=== PATIENT | male | born 1935 | race Caucasian/White ===

== ENCOUNTER 2018-08-08 13:26 | Outpatient (CLI) | payer MEDICARE ==
[~2018-08-08 13:26] MED LIST: Gadobenate Dimeglumine 529 MG/1 ML (20ML VIAL) ONE
--- NOTE | 2018-08-08 16:55 | MRI ---
MR ANGIOGRAM NECK WITH AND WITHOUT CONTRAST: HISTORY: Transient ischemic attack. Evaluate cervical carotids. COMPARISON: None. TECHNIQUE: Axial 3D [id number] imaging and coronal postcontrast imaging of the great vessels of the neck is performed. Maximum intensity projection images are submitted for interpretation. FINDINGS: The axial 3D [id number] images are essentially suboptimal and nondiagnostic. The coronal post contrast images are somewhat limited but do allow for reasonable visualization of th e great vessels of the neck. The visualized aortic arch is unremarkable. There appears to a common origin of the right carotid an d left carotid arteries. The right common carotid artery is mildly tortuous. There does not appear to be any significant sten osis of the right common carotid artery, the carotid bifurcation, or the internal carotid artery. The left common carotid artery appears to have appropriate luminal diameter. There does appear to be significant stenosis with possible dissection involving the left carotid bifurcation and proximal in ternal carotid artery. Better interrogation with conventional angiography or CT angiogram of the nec k is recommended. This dissection may extend into the distal left common carotid artery. The mid to distal left internal carotid artery is unremarkable. There is limited evaluation of the origin of the right vertebral artery. The right vertebral artery is patent throughout the remainder of the course of the neck. The left vertebral artery is dominant. There appears to be mild tortuosity of the proximal left vertebral artery. No significant stenosis . IMPRESSION: Possible dissection involving the distal left common carotid artery, carotid bifurcation, and proxima l internal carotid artery. Better interrogation with a CT angiogram of the neck or conventional shoaib ography is recommended. The results of the study were discussed with Dr. Adrian on 08/08/2018 at 4:32 p.m. ANDREW COLLINS POS: [facility]
== END 2018-08-08 13:27 | disposition home or self-care (01) ==
LOC: SCSMRI 13:26
PROVIDERS: ATTEND Internal Medicine Cardiovascular Disease
DX: G45.9 Transient cerebral ischemic attack, unspecified (principal)
CPT/HCPCS: 70549; 82565; A9579

== ENCOUNTER 2018-08-30 12:09 | Outpatient (CLI) | payer MEDICARE ==
[~2018-08-30 12:09] MED LIST changes: -Gadobenate Dimeglumine 529 MG/1 ML (20ML VIAL) ONE; +ISOVUE-370 76%-LOCM 1 ML ONE
--- NOTE | 2018-08-30 17:47 | CT ---
CT ANGIOGRAM OF THE NECK: 08/30/18 HISTORY: Carotid artery occlusion. Carotid stenosis. Possible dissection of the left carotid artery noted on M R angiogram of the neck. COMPARISON: None. CORRELATION: MR angiogram of the neck 08/08/18. TECHNIQUE: CT angiogram of the neck is performed in the axial plane. Three dimensional reformatted images are julian bmitted for interpretation. FINDINGS: The visualized brain parenchymal is unremarkable. Bilateral ocular lens implants are noted. Both globes are intact. Retrobulbar fat is preserved. Slightly asymmetric prominent left ophthalmic vein, nonspecific. Adequate aeration of the sinuses wit h exception of the left maxillary sinus where there is mucosal disease. Adequate mastoid air cell aer ation. Aerodigestive tract is patent. No mucosal abnormality. Midline fatty raphae of the tongue is p reserved. Epiglottis has a normal caliber. Pre-epiglottic fat is preserved. Symmetric attenuation of the sternocleidomastoid muscles. Symmetric attenuation of the parotid and julian bmandibular glands. Unremarkable thyroid gland. No evidence of lymphadenopathy by size criteria. Cervical spine vertebral body height is maintained. No fracture. No high grade central canal stenosis or high grade foraminal narrowing. Upper mediastinum and lung apices are unremarkable. CT ANGIOGRAM: The aortic arch has an overall normal appearance. There is a bovine origin of the carotid arteries. RIGHT CAROTID: The common carotid artery, carotid bifurcation, and internal carotid artery do not have any significa nt stenosis based upon NASCET criteria. LEFT CAROTID: The left common carotid has appropriate enhancement and luminal diameter. In the left carotid bifurca tion, there is a short segment severe stenosis with a small focal ulceration. Area of focal ulceratio n and irregularity corresponds with a possible dissection noted on previous MRA. Note, there is a calcification that is somewhat medially displaced and an associated small carotid di ssection, likely chronic cannot be excluded. The mid to distal left internal carotid artery is unrema rkable. Both subclavian arteries are unremarkable. The cervical vertebral arteries are patent throughout thei r course of the neck. The left vertebral artery is dominant. IMPRESSION: 1. Short segment severe stenosis with ulceration and possible chronic dissection involving the l eft carotid bifurcation and proximal left internal carotid artery. There is severe stenosis of the l eft carotid bifurcation and proximal left internal carotid artery based upon NASCET criteria. 2. Slightly asymmetric prominent left ophthalmic vein. 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 POS: [facility]
== END 2018-08-30 12:10 | disposition home or self-care (01) ==
LOC: BICCT 12:09
PROVIDERS: ATTEND Thoracic Surgery (Cardiothoracic Vascular Surgery)
DX: I65.22 Occlusion and stenosis of left carotid artery (principal); I77.2 Rupture of artery
CPT/HCPCS: 70498; 82565

== ENCOUNTER 2018-09-09 05:42 | Inpatient (IN) | payer MEDICARE ==
[2018-09-09] MEDS ORDERED: Bupivacaine/Epinephrine 0.25% 30 ML VIAL ONE (07:00)
[2018-09-09] MEDS ORDERED: Heparin 5,000 UNITS/ML VIAL ONE (07:00)
[2018-09-09] MEDS ORDERED: Midazolam HCl 2 mg/2 ml Vial ONE (07:07)
[2018-09-09] MEDS ORDERED: Bupivacaine HCl 0.5%/Epinephrine 1:200,000/PF 30 ml Vial ONE (08:02)
[2018-09-09] MEDS ORDERED: Protamine Sulfate 50 MG/5 ML VIAL ONE (08:39)
--- NOTE | 2018-09-09 11:04 | OP ---
DATE OF PROCEDURE: 09/09/2018 PREOPERATIVE DIAGNOSIS: Symptomatic left carotid stenosis. POSTOPERATIVE DIAGNOSIS: Symptomatic left carotid stenosis. PROCEDURE: Left carotid endarterectomy. SURGEON: Dr. Melchor Love ANESTHESIA: General endotracheal. ESTIMATED BLOOD LOSS: Less than 100. PROCEDURE IN DETAIL: After consent was obtained, the patient was brought to operating room and placed supine on the operating room table. Appropriate anesthetic monitor was placed and general endotracheal anesthesia induced. The left neck was prepped and draped in usual sterile fashion. Skin incision was made. Dissection through the platysma obtained with electrocautery. Left sternocleidomastoid was mobilized. Facial vein branches were divided between clips and ties. The carotid sheath was entered. Common internal and external carotid arteries were carefully exposed. Vagus and hypoglossal nerves were noted and protected throughout the procedure. This incision was deep as he has a very large neck. After 3 minutes of heparinization, the internal common, and external carotid arteries were clamped. Incision was made on the bulb and extended through the internal carotid artery distal to the stenosis. Inside the carotid was a significant soft plaque with free floating debris. A 10- [place] shunt was placed and antegrade flow reestablished. Endarterectomy was begun on the common carotid artery. This was extended through the bulb on the internal carotid artery. A sharp endpoint was obtained. This was tacked down with running 7-0 Prolene suture. Eversion endarterectomy of the external carotid artery was performed. Medial fibers were debrided. Artery was flushed with heparinized saline. This was a large artery, approximately 6 mm in diameter and therefore it was primarily closed. Shunt was removed prior to completion of closure. After completion of the closure, arteries were backbled and the artery flushed with heparinized saline. Suture line was then tied. Antegrade flow was reestablished up the external carotid artery for 10 seconds followed by the internal carotid artery. Protamine was administered. After adequate hemostasis had been obtained, the wound was copiously irrigated, closed in layers and Dermabond applied to the skin. The patient was awakened and neurologically intact at completion. [facility]PITAL[facility]ie
--- NOTE | 2018-09-09 11:59 | CT ---
CT HEAD NONCONTRAST: Date: 09/09/18 INDICATION: Altered mental status. History of carotid endarterectomy. Aphasia and diminished movement. FINDINGS: There is a focal region of diminished attenuation involving the left frontal lobe with superimposed a reas of small cavitary remote infarction. There is no hemorrhage, mass effect, or midline shift. Vent ricular system is normal in size. IMPRESSION: 1. Area of diminished attenuation left frontal lobe, which likely relates to subacute ischemia, with superimposed multifocal remote appearing cavitary infarctions, primarily left STELLA distribution. 2. There are scattered areas of diminished attenuation indicating superimposed mild ischemic disease . Consider brain MRI, in the absence of contraindications, for a more definitive assessment. POS: [facility]
[2018-09-09 13:46] LABS: Hemoglobin 15.2 g/dL (14.0-18.0); Mean Corpuscular HGB CONC 31.2 g/dL (32.0-36.0); Mean Corpuscular Hemoglobin 27.3 pg (27.0-31.0); Mean Corpuscular Volume 87.5 fL (78.0-98.0); Mean Platelet Volume 8.4 fL (7.4-10.4); Platelet Count 201 thou/uL (130-400); RBC Distribution Width 14.9 % (11.5-14.5); Red Blood Cell (RBC) Count 5.54 mill/uL (4.70-6.10); White Blood Cell (WBC) Count 6.3 thou/uL (4.8-10.8)
[2018-09-09 15:04] LABS: Anion Gap 11 mmol/L (10-20); BUN (Urea Nitrogen) 18 mg/dL (8.4-25.7); Calc. Creatinine Clearance 75 mL/min (70-130); Calcium 9.3 mg/dL (7.8-10.44); Carbon Dioxide 30 mmol/L (23-31); Chloride 97 mmol/L (98-107); Estimated GFR-MDRD 60; Glucose 114 mg/dL (83-110); Potassium 3.9 mmol/L (3.5-5.1); Sodium 134 mmol/L (136-145)
[2018-09-09] MEDS ORDERED: Iopamidol 370 76% 100 ML VIAL ONE (15:05)
--- NOTE | 2018-09-09 15:21 | CT ---
CT ARTERIOGRAM NECK WITH IV CONTRAST AND 3D MIP IMAGING CT ARTERIOGRAM HEAD WITH IV CONTRAST AND 3D MIP IMAGING CT BRAIN WITH IV CONTRAST: Date: 09/09/18 HISTORY: CVA. Recent neck surgery. FINDINGS: Atelectasis at each lung apex. Good flow into each carotid and vertebral system. Bovine origin of the great vessels at the aortic arch. On the right, there is calcification and plaque at the internal carotid artery with short segment foc us of approximately 50% stenosis within the mid to distal right ICA. Good flow into the distal ICA. On the left, there are postoperative changes at the carotid bifurcation. Internal carotid artery is w idely patent. Pockets of gas and surgical clips are apparent. Intracranially, no abnormal areas of contrast enhancement are evident. [place] of [place] is intact. Ca lcification in the carotid siphons. Persistent origin of the left posterior cerebral artery. Good contrast flow into each cerebral arterial system, including the left anterior cerebral artery. IMPRESSION: 1. Atherosclerosis. 2. Postoperative changes left cervical carotid arteries. No evidence of complication. 3. Subacute/acute left frontal infarct. 4. Atherosclerosis with mild stenosis right cervical ICA. Findings called to Dr. Love at 1300 hours. CODE CR. POS: [facility]
[2018-09-09] MEDS ORDERED: hydrALAZINE 20 MG/ML VIAL SLOW IVP PRN ×2 (15:25→15:26)
[2018-09-09] MEDS ORDERED: Fentanyl 100 MCG/2 ML VIAL SLOW IVP PRN (15:28)
[2018-09-09] MEDS ORDERED: traMADol HCl 50 MG TAB PO PRN (15:29)
[2018-09-09] MEDS ORDERED: Ondansetron HCl/PF 4 MG/2 ML Vial IVP PRN (15:30)
[2018-09-09] MEDS ORDERED: Nitroglycerin 50 MG/250 ML BOT 250 ML IVPB SCH (15:30)
[2018-09-09 16:45] LABS: ALT (SGPT) 27 U/L (8-55); AST (SGOT) 25 U/L (5-34); Albumin 3.9 g/dL (3.4-4.8); Alkaline Phosphatase 61 U/L (40-150); Anion Gap 13 mmol/L (10-20); BUN (Urea Nitrogen) 18 mg/dL (8.4-25.7); Bilirubin, Total 0.9 mg/dL (0.2-1.2); Calc. Creatinine Clearance 83 mL/min (70-130); Calcium 8.2 mg/dL (7.8-10.44); Carbon Dioxide 22 mmol/L (23-31); Chloride 103 mmol/L (98-107); Estimated GFR-MDRD 66; Globulin 2.5 g/dL (2.4-3.5); Glucose 155 mg/dL (83-110); Potassium 3.9 mmol/L (3.5-5.1); Protein, Total 6.4 g/dL (5.8-8.1); Sodium 134 mmol/L (136-145)
[2018-09-09 16:48] LABS: PTT 30.6 SEC (22.9-36.1); Prothrombin Time 13.2 SEC (12.0-14.7)
[2018-09-09 16:49] LABS: CKMB 2.2 ng/mL (0-6.6); Troponin I Less than 0.010 ng/mL (< 0.028)
[2018-09-09 17:03] LABS: Anisocytosis SLIGHT = 6-15 cells (100X) (0-5/hpf); Band 5 % (5-11); Hemoglobin 14.3 g/dL (14.0-18.0); Lymphocytes 4 % (21-51); MDiff Complete? YES; Mean Corpuscular HGB CONC 32.6 g/dL (32.0-36.0); Mean Corpuscular Hemoglobin 28.6 pg (27.0-31.0); Mean Corpuscular Volume 87.9 fL (78.0-98.0); Mean Platelet Volume 8.8 fL (7.4-10.4); Monocytes 5 % (0-10); Neutrophil 86 % (42-75); PLT Morphology Comment Appears Adequate; Platelet Count 178 thou/uL (130-400); RBC Distribution Width 14.9 % (11.5-14.5); Red Blood Cell (RBC) Count 5.01 mill/uL (4.70-6.10)
[2018-09-09] MEDS: Clindamycin/D5W 900 MG in Premix Bag 1 BAG IVPB SCH (17:10)
[2018-09-09] MEDS ORDERED: Non-Formulary Item 1 EACH (Telmisartan/Hydrochlorothiazid [Telmisartan-Hctz 40-12.5 Mg Tb PO SCH (21:00)
[2018-09-09] MEDS: Isosorbide Dinitrate 20 MG TAB PO SCH (21:56)
[2018-09-09] MEDS: Hydrochlorothiazide 25 MG TAB PO SCH (21:57)
[2018-09-09] MEDS: Simvastatin 5 MG TAB PO SCH (21:57)
[2018-09-09] MEDS: hydrALAZINE 25 MG TAB PO SCH (21:57)
[2018-09-09] MEDS: Ubidecarenone 50 MG CAP PO SCH (21:57)
[2018-09-10] MEDS: Clindamycin/D5W 900 MG in Premix Bag 1 BAG IVPB SCH ×2 (00:15→06:10)
--- NOTE | 2018-09-10 02:46 | CON ---
DATE OF CONSULTATION: 09/09/2018 SERVICE: Pulmonary Medicine. REASON FOR CONSULTATION: ICU patient. HISTORY OF PRESENT ILLNESS: The patient is an 83-year-old white male with past medical history significant for carotid arterial disease. He is postop day #0 from a left carotid endarterectomy. The postop course was complicated by stroke -like symptoms. He went down for an emergent CT of the head and CT of the [place]. These findings are discussed below. Initially, the patient had a dense hemiplegia and aphasia. That being said, he is rapidly clearing and over a period of 2 hours, he is able to move all 4 extremities. He has quite a bit of difficulty with speech with word finding problems. As such, I really can have a conversation with the patient, but he is able to indicate yes and no and speaks simple one word sentences. He indicates he is in no discomfort. He has no headache, fevers, chills, nausea or vomiting. He has got a little bit of appropriate discomfort in the neck, but outside of that, he actually feels pretty good. PAST MEDICAL HISTORY: 1. Hypertension. 2. Dyslipidemia. 3. Hypothyroidism. 4. Gastroesophageal reflux disease. 5. Carotid arterial disease. 6. Coronary artery disease. 7. Obstructive sleep apnea. 8. Major depressive disorder. 9. History of some skin cancers. 10. Benign prostatic hypertrophy, status post TURP. PAST SURGICAL HISTORY: 1. Cataract surgeries, bilateral. 2. Excision of tumor from left arm. 3. Hemorrhoidectomy. 4. Left total knee replacement. 5. Left carotid endarterectomy, postop day #0. FAMILY HISTORY: Noncontributory. SOCIAL HISTORY: Positive for occasional alcohol use. He denies any significant illicit drugs or tobacco products currently. REVIEW OF SYSTEMS: General, head, ears, eyes, nose, throat, cardiovascular, respiratory, GI, , musculoskeletal, neurologic and skin is negative except as mentioned in the HPI. ALLERGIES: CODEINE and PENICILLIN. MEDICATIONS: List of his inpatient medications were reviewed. No specific updates were made at this time. PHYSICAL EXAMINATION: VITAL SIGNS: Afebrile, pulse 53, blood pressure 138/64, respirations 7, saturation 93% on room air. GENERAL: The patient is awake and alert, in no apparent distress. LUNGS: There is excellent air entry without any prolonged expiratory phase or wheezing present. HEART: Bradycardic. Regular. ABDOMEN: Soft, nontender, nondistended. Bowel sounds are positive. MUSCULOSKELETAL: No cyanosis or clubbing. There is no pitting in the bilateral lower extremities. NEUROLOGIC: Grossly nonfocal. LABORATORY DATA: WBC 9.0, hemoglobin 14.3, platelets 178,000. INR 1.0. Basic metabolic profile and liver function studies are essentially unremarkable. Troponin is negative x1. IMAGIN. CT [place] demonstrates atherosclerosis. There are postoperative changes of the left cervical carotid artery. Subacute left frontal infarct. 2. CT of the brain demonstrates left frontal diminished attenuation. Scattered areas of diminished attenuation are also present on the left. ASSESSMENT: 1. Carotid endarterectomy, postop day #0. 2. Cerebrovascular of the left frontal cortex. 3. Obstructive sleep apnea. PLAN: We will continue supportive measures. We will allow the blood pressure to remain high over the next 24 hours as long as it remains under 180. Neuro checks and NIH scale will be obtained frequently. CPAP equipment will be continued for the duration of his hospital stay. He brought his equipment from home and we will verify respiratory therapy is able to help him set it up. 70 minutes have been devoted to this patient in various activities. I personally reviewed all imaging studies and laboratory data noted within this document. For fifty percent of this time, I was interacting with the patient at the bedside or coordinating care with the care team. For the remainder of the time I was immediately available to the patient in the hospital unit. EDI
[2018-09-10] MEDS: Levothyroxine 175 MCG TAB PO SCH (06:11)
[2018-09-10] MEDS: Hydrochlorothiazide 25 MG TAB PO SCH ×2 (08:47→20:45)
[2018-09-10] MEDS: Aspirin 325 mg Enteric Coated Tablet PO SCH (08:47)
[2018-09-10] MEDS: Allopurinol 300 MG TAB PO SCH (08:47)
[2018-09-10] MEDS: Isosorbide Dinitrate 20 MG TAB PO SCH ×3 (08:47→20:48)
[2018-09-10] MEDS: hydrALAZINE 25 MG TAB PO SCH ×3 (08:50→20:46)
[2018-09-10] MEDS ORDERED: Hydrochlorothiazide 25 MG TAB PO SCH (09:00)
[2018-09-10] MEDS ORDERED: CIT AC PO SCH (09:00)
[2018-09-10] MEDS ORDERED: POTASSIUM BICARBONATE PO SCH (09:00)
[2018-09-10 10:12] VITALS: BMI 35.9
[2018-09-10] MEDS ORDERED: Acetaminophen 325 MG TAB PO PRN (10:46)
--- NOTE | 2018-09-10 11:49 | PRG ---
DATE OF SERVICE: 09/10/2018 SERVICE: Pulmonary Medicine. INTERVAL HISTORY: The patient is doing outstanding from a respiratory standpoint. He is breathing comfortably. His aphasia is improving ever so slightly. He demonstrates good strength throughout. Otherwise, there has been no interval change to his condition. PHYSICAL EXAMINATION: VITAL SIGNS: Afebrile, pulse 55, blood pressure 158/72, respirations 16, saturation 96% on 2 liters nasal cannula. GENERAL: The patient is awake, alert, no apparent distress. LUNGS: Excellent air entry. Minimal dependent crackles and rhonchi are present. They clear with cough. HEART: Normal rate, regular. ABDOMEN: Soft, nontender, nondistended. Bowel sounds are positive. MUSCULOSKELETAL: No cyanosis or clubbing. There is no pitting in the bilateral lower extremities. NEUROLOGIC: Grossly nonfocal. ASSESSMENT: 1. Carotid endarterectomy, postop day #1. 2. 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 3. Obstructive sleep apnea. DISCUSSION AND PLAN: Supportive measures will be continued. He will continue to work with physical therapy, occupational therapy, as well as speech therapy. When he lands on the floor, he will have no further requirements for inpatient Pulmonary or Critical Care opinion and I will sign off. Please call with additional questions or concerns moving forward. EDI
[2018-09-10] MEDS: Ubidecarenone 50 MG CAP PO SCH (20:45)
[2018-09-10] MEDS: Simvastatin 5 MG TAB PO SCH (20:47)
[2018-09-11] MEDS: Levothyroxine 175 MCG TAB PO SCH (05:34)
[2018-09-11] MEDS: Hydrochlorothiazide 25 MG TAB PO SCH ×2 (08:34→19:40)
[2018-09-11] MEDS: hydrALAZINE 25 MG TAB PO SCH ×3 (08:37→19:34)
[2018-09-11] MEDS: Aspirin 325 mg Enteric Coated Tablet PO SCH (08:38)
[2018-09-11] MEDS: Allopurinol 300 MG TAB PO SCH (08:39)
[2018-09-11] MEDS: Isosorbide Dinitrate 20 MG TAB PO SCH ×3 (08:39→19:40)
[2018-09-11] MEDS: Ubidecarenone 50 MG CAP PO SCH (19:38)
[2018-09-11] MEDS: Simvastatin 5 MG TAB PO SCH (19:38)
[2018-09-11] MEDS ORDERED: Prevnar 13-Val Conj/PF 0.5 ML SYRINGE IM ONE (21:00)
[2018-09-12] MEDS: Levothyroxine 175 MCG TAB PO SCH (05:28)
[2018-09-12] MEDS: Isosorbide Dinitrate 20 MG TAB PO SCH ×3 (08:47→20:58)
[2018-09-12] MEDS: hydrALAZINE 25 MG TAB PO SCH ×3 (08:47→20:58)
[2018-09-12] MEDS: Aspirin 325 mg Enteric Coated Tablet PO SCH (08:48)
[2018-09-12] MEDS: Finasteride 5 MG TAB PO SCH (08:48)
[2018-09-12] MEDS: Hydrochlorothiazide 25 MG TAB PO SCH ×2 (08:48→20:56)
[2018-09-12] MEDS: Allopurinol 300 MG TAB PO SCH (08:48)
[2018-09-12] MEDS: Tamsulosin HCl 0.4 MG CAP PO SCH (08:49)
[2018-09-12] MEDS ORDERED: Prevnar 13-Val Conj/PF 0.5 ML SYRINGE IM ONE (09:00)
[2018-09-12] MEDS: Simvastatin 5 MG TAB PO SCH (20:56)
[2018-09-12] MEDS: Ubidecarenone 50 MG CAP PO SCH (20:58)
[2018-09-13] MEDS: Levothyroxine 175 MCG TAB PO SCH (06:01)
[2018-09-13] MEDS ORDERED: Potassium Bicarbonate/Cit Ac 25 MEQ TAB PO SCH (09:00)
[2018-09-13] MEDS: Finasteride 5 MG TAB PO SCH (09:43)
[2018-09-13] MEDS: Allopurinol 300 MG TAB PO SCH (09:45)
[2018-09-13] MEDS: hydrALAZINE 25 MG TAB PO SCH ×2 (09:45→15:18)
[2018-09-13] MEDS: Aspirin 325 mg Enteric Coated Tablet PO SCH (09:45)
[2018-09-13] MEDS: Tamsulosin HCl 0.4 MG CAP PO SCH (09:46)
[2018-09-13] MEDS: Isosorbide Dinitrate 20 MG TAB PO SCH ×2 (09:46→15:18)
[2018-09-13] MEDS: Hydrochlorothiazide 25 MG TAB PO SCH (09:46)
[2018-09-13 12:30] VITALS: BP 115/57; TEMP 97.7
--- NOTE | 2018-09-13 23:09 | DIS ---
DATE OF ADMISSION: 09/09/2018 TRANSFERRED TO REHAB: 09/13/2018 DIAGNOSES: Symptomatic left carotid disease with post-carotid endarterectomy stroke. PROCEDURE: Left carotid endarterectomy. DESCRIPTION OF HOSPITAL STAY: Mr. Feldman was admitted after having had multiple TIAs involving in his left carotid system in the past. He underwent carotid endarterectomy. Postoperatively, he has had difficulty with motor control drastically improved and speech. He remains aphasic to some degr ee. He is being transferred to rehab for further post-stroke rehabilitation. DISCHARGE MEDICATIONS: 1. Allopurinol 300 mg daily. 2. Hydralazine 25 mg 1-1/2 tabs t.i.d. 3. Isordil 20 mg t.i.d. 4. Synthroid 175 mcg daily. 5. Potassium bicarbonate of 10 mEq daily. 6. Pravastatin 20 mg at bedtime. 7. Micardis/hydrochlorothiazide 40/12.5 b.i.d. 8. CoQ10 of 100 mg at bedtime. 9. Aspirin 325 mg daily. 10. Proscar 5 mg daily. 11. Flomax 0.4 mg every day. CONDITION ON DISCHARGE: Good. PROGNOSIS: Good post-discharge.
== END 2018-09-13 15:57 | DRG 37 ==
LOC: SURG A 05:42 → EDSTATUS 09:37 → CCU 12:50 → 2SE 09-10 11:45
PROVIDERS: ADMIT Thoracic Surgery (Cardiothoracic Vascular Surgery); ATTEND Thoracic Surgery (Cardiothoracic Vascular Surgery)
PROC: 03CN0ZZ Extirpation of Matter from Left External Carotid Artery, Open Approach (ICD-10-PCS; principal; 2018-09-09)
PROC: 03CL0ZZ Extirpation of Matter from Left Internal Carotid Artery, Open Approach (ICD-10-PCS; 2018-09-09)
DX: I65.22 Occlusion and stenosis of left carotid artery (principal); I63.9 Cerebral infarction, unspecified; I50.42 Chronic combined systolic (congestive) and diastolic (congestive) heart failure; I97.821 Postprocedural cerebrovascular infarction following other surgery; R47.01 Aphasia; I25.10 Atherosclerotic heart disease of native coronary artery without angina pectoris; E78.5 Hyperlipidemia, unspecified; Z96.652 Presence of left artificial knee joint; M10.9 Gout, unspecified; E66.01 Morbid (severe) obesity due to excess calories; Z68.35 Body mass index [BMI] 35.0-35.9, adult; I11.0 Hypertensive heart disease with heart failure; E03.9 Hypothyroidism, unspecified; K21.9 Gastro-esophageal reflux disease without esophagitis; G47.33 Obstructive sleep apnea (adult) (pediatric); F32.9 Major depressive disorder, single episode, unspecified; N40.0 Benign prostatic hyperplasia without lower urinary tract symptoms; Z88.5 Allergy status to narcotic agent; Z88.0 Allergy status to penicillin; Z79.82 Long term (current) use of aspirin; Z86.73 Personal history of transient ischemic attack (TIA), and cerebral infarction without residual deficits
CPT/HCPCS: 36416; 70450; 70496; 70498; 80048; 82553; 84484; 85027; 85610; 85730; 90471; 90662; 90670; 93005; 93010; G0008; G0009; G8978-GP-CM; G8979-GP-CK; G8987-GO-CL; G8988-GO-CJ; G9162-GN-CM; G9163-GN-CK; J0670; J1642; J1644; J2250; J2405; J2720; J3010; J3490